=== PATIENT | female | born 1950 | race Caucasian/White ===

== ENCOUNTER 2018-03-25 15:37 | Inpatient (IN) | payer OTHER ==
[2018-03-25 15:52] VITALS: BMI 25.6
[2018-03-25] MEDS ORDERED: METOCLOPRAMIDE HCL INJECTION 10 MG/2 ML VIAL IVPUSH ONE (16:27)
[2018-03-25] MEDS ORDERED: SODIUM CHLORIDE 0.9% 500 ML INFUS.BAG IV ONE ×2 (16:28→17:22)
[2018-03-25 17:00] LABS: BASO % 1.1 % (0-2.0); EOS % 13.5 % (0-4.5); HEMATOCRIT 36.5 % (32.4-45.2); HEMOGLOBIN 12.4 GM/dL (10.7-15.3); LYMPH % 14.1 % (8-40); MCHC 34.1 g/dl (32.0-36.0); NEUT % 65.3 % (42.8-82.8); PLATELET COUNT 171 K/MM3 (134-434); RBC 4.29 M/mm3 (3.60-5.2); RDW 13.2 % (11.6-15.6); WHITE BLOOD COUNT 8.2 K/mm3 (4.0-10.0)
--- NOTE | 2018-03-25 17:05 | PDOC ---
Attending Attestation - Resident Resident Name: Joby Robles - ED Attending Attestation I have performed the following: I have examined & evaluated the patient, The case was reviewed & discussed with the resident, I agree w/resident's findings & plan, Exceptions are as noted - HPI HPI: 67 yo F presenting with AGUIRRE and syncope. +Bifrontal headache for past 2 weeks, no associated photophobia/phonophobia. Had brief LOC on way home from PMD office today. - Physicial Exam PE: GENERAL: Awake, alert, and fully oriented, in no acute distress HEAD: No signs of trauma EYES: PERRLA, EOMI, sclera anicteric, conjunctiva clear ENT: Auricles normal inspection, hearing grossly normal, nares patent, oropharynx clear without exudates. Moist mucosa NECK: Normal ROM, supple, no lymphadenopathy, JVD, or masses LUNGS: Breath sounds equal, clear to auscultation bilaterally. No wheezes, and no crackles HEART: Bradycardic with regular rhythm, normal S1 and S2, no murmurs, rubs or gallops ABDOMEN: Soft, nontender, normoactive bowel sounds. No guarding, no rebound. No masses EXTREMITIES: Normal range of motion, no edema. No clubbing or cyanosis. No cords, erythema, or tenderness NEUROLOGICAL: Cranial nerves II through XII grossly intact. Normal speech, normal gait. Motor and sensation intact. SKIN: Warm, Dry, normal turgor, no rashes or lesions noted. - Medical Decision Making Neurologically intact, no signs of CVA. On account of the CHRISS and bradycardia ( new onset), will admit to tele.
[2018-03-25 17:23] LABS: ALBUMIN 3.9 g/dl (3.4-5.0); ANION GAP 12 MMOL/L (8-16); BILIRUBIN,TOTAL 0.3 mg/dL (0.2-1.0); BLOOD UREA NITROGEN 27 mg/dL (7-18); CALCIUM 9.1 mg/dL (8.5-10.1); CHLORIDE 97 mmol/L (98-107); CO2 24 mmol/L (21-32); CREATININE 1.1 mg/dL (0.55-1.02); GLUCOSE,RANDOM 100 mg/dL (74-106); POTASSIUM 3.4 mmol/L (3.5-5.1); SGOT/AST 17 U/L (15-37); SGPT/ALT 19 U/L (12-78); SODIUM 133 mmol/L (136-145); TOT PROT 7.6 g/dl (6.4-8.2)
[2018-03-25 17:31] LABS: ALK PHOS 98 U/L (45-117)
[2018-03-25] MEDS ORDERED: IBUPROFEN 600 MG TABLET (FP) PO ONE ×2 (17:31→17:32)
--- NOTE | 2018-03-25 17:49 | PDOC ---
History of Present Illness - General Chief Complaint: Pain, Acute Stated Complaint: DIZZINESS Time Seen by Provider: 03/25/18 15:51 History Source: Patient, Family Exam Limitations: No Limitations - History of Present Illness Initial Comments: 67 y/o female presenting to [facility] ER via ambulance complaining of headache and syncope. Pt reports passing out on her way home from her PCPs office this afternoon. Unable to estimate duration of episode. Denies loss of urine or stool. No postictal period. drove the pt home then called for an ambulance. Pt denies h/o similar. Pt has been experiencing a bilateral frontal headache for the past two weeks. States it feels like a headache thats about to get bad. Denies visual or auditory changes. Denies nausea/vomiting, or other systemic symptoms. No fevers , chills, diaphoresis, rhinorrhea, cough/sneeze, sinus pressure, Medical Hx: Hypertension Hyperlipidemia Arthritis Surgical Hx: - Past History - Past Medical History Allergies/Adverse Reactions: Allergies Allergy/AdvReac Type Severity Reaction Status Date / Time No Known Allergies Allergy Verified 03/25/18 15:46 Home Medications: Ambulatory Orders Chlorthalidone 25 mg PO DAILY 03/25/18 Losartan Potassium 100 mg PO DAILY 03/25/18 Montelukast Sodium [Singulair] 10 mg PO HS 03/25/18 Quetiapine Fumarate [Seroquel] 100 tab PO HS 03/25/18 Simvastatin 20 mg PO HS 03/25/18 COPD: No HTN: Yes Hypercholesterolemia: Yes - Immunization History Immunization Up to Date: Yes - Suicide/Smoking/Psychosocial Hx Smoking History: Unknown if ever smoked Hx Alcohol Use: No Drug/Substance Use Hx: No Substance Use Type: None Review of Systems - Review of Systems Able to Perform ROS?: Yes Is the patient limited Jordanian proficient: No Constitutional: No: Chills, Diaphoresis, Fever HEENTM: No: Recent change in vision, Nose Congestion, Hearing Loss, Throat Pain , Difficulty Swallowing Respiratory: No: Cough, Shortness of Breath Cardiac (ROS): Yes: Syncope. No: Chest Pain, Lightheadedness, Palpitations ABD/GI: Yes: Constipated (Chronic and unchanged). No: Diarrhea, Difficulty Swallowing, Nausea, Rectal Bleeding, Vomiting, Indigestion, Abdominal cramping : No: Burning, Dysuria, Discharge, Frequency, Flank Pain, Hematuria Musculoskeletal: No: Back Pain Integumentary: No: Bruising, Rash Neurological: Yes: See HPI, Headache. No: Numbness, Paresthesia, Weakness Hematologic/Lymphatic: No: Easy Bleeding, Easy Bruising *Physical Exam - Vital Signs Last Vital Signs Temp Pulse Resp BP Pulse Ox 97.6 F 53 L 16 146/82 100 03/25/18 16:16 03/25/18 18:36 03/25/18 18:36 03/25/18 18:36 03/25/18 18:36 - Physical Exam Comments: Constitutional: Well-developed, well-nourished female in no acute distress. Found semi-fowlers in hospital bed. Alert and oriented x4. Answered all questions appropriately and completely. Speech was non-labored, non-pressured. Head: Normocephalic. No obvious external signs of trauma. Eyes: PERRL. EOMI. Sclerae white. Conjunctiva moist and not injected. EARS: Hearing grossly intact. No discharge. NOSE: No nasal discharge. THROAT: Oral cavity and pharynx normal. No inflammation, swelling, exudate, or lesions. Teeth and gingiva in good general condition. Neck: Supple, trachea is midline. No thyromegaly. HEENT: Normocephalic. No obvious external signs of trauma. Hearing grossly normal. No nasal discharge. Neck is supple, trachea is midline. No JVD. Cardiovascular: Bradycardic rate and regular rhythm. No murmur, rubs, clicks, or gallops. Peripheral pulses: Radial pulses full. Respiratory: Breathing unlabored. Equal chest rise and fall. Clear to auscultation bilaterally. No stridor, no wheezing, no rhonchi. Gastrointestinal: abdomen is soft, non-tender, non-distended. Neuro: Alert and oriented. Moving all four extremities spontaneously. No focal deficits. Intact sensation to all four extremities. Upper and lower extremity: Proximal and distal strength 5/5, juvenile court judge strength 5/5 - equal and symmetric. Plantar flexion and dorsiflexion 5/5. Skin: Warm, dry, and intact. No bruising, rashes, or other lesions. No palpable nodules. Psych: Affect: appropriate. Mood: normal ED Treatment Course - LABORATORY CBC & Chemistry Diagram: 03/25/18 16:47 03/25/18 16:47 - ADDITIONAL ORDERS Additional order review: Laboratory Results 03/25/18 03/25/18 03/25/18 18:27 18:27 16:47 Sodium 133 L Potassium 3.4 L Chloride 97 L Carbon Dioxide 24 Anion Gap 12 BUN 27 H Creatinine 1.1 H Creat Clearance w eGFR 49.39 Random Glucose 100 Calcium 9.1 Total Bilirubin 0.3 AST 17 ALT 19 Alkaline Phosphatase 98 Troponin I < 0.02 Total Protein 7.6 Albumin 3.9 TSH 2.42 Urine Color Ltyellow Urine Appearance Slcloudy Urine pH 6.0 Ur Specific [place] 1.010 Urine Protein 12 H Negative Urine Glucose (UA) Negative Urine Ketones Negative Urine Blood Negative Urine Nitrite Negative Urine Bilirubin Negative Urine Urobilinogen Negative Ur Leukocyte Esterase 3+ H Urine WBC (Auto) 15 Urine RBC (Auto) 1 Ur Epithelial Cells Moderate Urine Mucus Rare Ur Random Sodium 55 Urine Creatinine 67.2 03/25/18 16:47 RBC 4.29 MCV 85.0 MCHC 34.1 RDW 13.2 MPV 10.0 Neutrophils % 65.3 Lymphocytes % 14.1 Monocytes % 6.0 Eosinophils % 13.5 H Basophils % 1.1 - RADIOLOGY Radiology Studies Ordered: Category Date Time Status CHEST X-RAY PORTABLE* [RAD] Stat Radiology 03/25/18 16:26 Taken - Medications Given in the ED: ED Medications Discontinued Medications Generic Name Dose Route Start Last Admin Trade Name Freq PRN Reason Stop Dose Admin Diphenhydramine HCl 12.5 mg 03/25/18 16:27 03/25/18 17:37 Benadryl Injection - IVPUSH 03/25/18 16:28 Not Given ONCE ONE Ibuprofen 600 mg 03/25/18 17:31 03/25/18 17:35 Motrin - PO 03/25/18 17:32 600 mg ONCE ONE Administration Metoclopramide HCl 10 mg 03/25/18 16:27 03/25/18 17:37 Reglan Injection - IVPUSH 03/25/18 16:28 Not Given ONCE ONE Sodium Chloride 500 ml 03/25/18 16:28 03/25/18 16:54 Normal Saline - IV 03/25/18 16:29 500 ml ONCE ONE Administration Sodium Chloride 500 ml 03/25/18 17:22 03/25/18 17:35 Normal Saline - IV 03/25/18 17:23 500 ml ONCE ONE Administration Medical Decision Making - Medical Decision Making *Reviewed nursing notes and prior visit documentation. 67 y/o female complaining of syncopal episode with acute on chronic 2 week headache. No h/o similar. Afebrile. Vitals remarkable for bradycardia and mild hypertension. Pt is not on a beta-marilia. Benign physical exam. Differential includes ACS, arrhythmia, symptomatic bradycardia, anemia, hypothyroidism, and TIA (low suspicion). Will obtain CBC, CMP, TSH, Troponin EKG, and CXR. Ordered motrin for headache. EKG: Sinus bradycardia with a ventricular rate of 43 bpm. Possible left axis deviation. Normal intervals. No ST segment elevation or depression. No hyperacute T waves. T wave inversions in V2, V3, V4, V5, V6. No pathologic Q waves. CXR: Per my wet read: No acute cardiopulmonary process. Trachea midline. Normal cardiac silhouet. No blunting of costophrenic angles. No infiltrates. CBC unremarkable for anemia or leukocytosis. CMP unremarkable for electrolyte derangement. LFTs not elevated. Azotemia, suspect CHRISS. Will order UA and urine electrolytes. Ordered NS maintenance at 100mL/hr. Troponin not elevated. TSH normal. Discussed imaging and laboratory results with pt. Answered all questions. Pt expressed verbal understanding and agreement with plan to admit to the hospital. Pt admitted to Dr. Leon service on inpatient telemetry for CHRISS and bradycardia. Consult placed for cardiology Dr. Tripathi in [facility]. UA and urine electrolytes pending. *DC/Admit/Observation/Transfer Diagnosis at time of Disposition: Bradycardia, CHRISS (acute kidney injury) Syncope Qualifiers: Syncope type: unspecified Qualified Code(s): R55 - Syncope and collapse - Discharge Dispostion Condition at time of disposition: Fair Decision to Admit order: Yes Decision to Admit order Date/Time: Decision to Admit Order Category Date Time Status Decision to Admit to Hospital Routine Admission 03/25/18 18:20 Active - Referrals - Patient Instructions - Post Discharge Activity
[2018-03-25 18:36] LABS: URINE APPEARANCE SLCLOUDY; URINE BILIRUBIN NEGATIVE (<2.0 mg/dL); URINE COLOR LTYELLOW; URINE GLUCOSE (UA) NEGATIVE (NEGATIVE); URINE KETONE NEGATIVE (NEGATIVE); URINE NITRITE NEGATIVE (NEGATIVE); URINE PROTEIN NEGATIVE (NEGATIVE); URINE UROBILINOGEN NEGATIVE mg/dL (0.2-1.0)
[2018-03-25 18:39] LABS: URINE LEUK ESTERASE 3+ (NEGATIVE)
[2018-03-25 18:43] LABS: EPI CELLS MODERATE /HPF (FEW); URINE MUCUS RARE
[2018-03-25] MEDS: SODIUM CHLORIDE 1,000 ML IV SCH (18:54)
--- NOTE | 2018-03-25 19:22 | HP ---
Admitting History and Physical - Primary Care Physician PCP: Alex Clarke - Admission Chief Complaint: syncope History of Present Illness: 67 y/o female presenting to [facility] ER via ambulance complaining of headache and syncope. Pt reports passing out on her way home from her PCPs office this afternoon. Unable to estimate duration of episode. Denies loss of urine or stool. No postictal period. drove the pt home then called for an ambulance. Pt denies h/o similar. Pt has been experiencing a bilateral frontal headache for the past two weeks. States it feels like a headache thats about to get bad. Denies visual or auditory changes. Denies nausea/vomiting, or other systemic symptoms. No fevers , chills, diaphoresis, rhinorrhea, cough/sneeze, sinus pressure, - Smoking History Smoking history: Unknown if ever smoked - Alcohol/Substance Use Hx Alcohol Use: No Home Medications - Allergies Allergies/Adverse Reactions: Allergies Allergy/AdvReac Type Severity Reaction Status Date / Time No Known Allergies Allergy Verified 03/25/18 15:46 - Home Medications Home Medications: Ambulatory Orders Chlorthalidone 25 mg PO DAILY 03/25/18 Losartan Potassium 100 mg PO DAILY 03/25/18 Montelukast Sodium [Singulair] 10 mg PO HS 03/25/18 Quetiapine Fumarate [Seroquel] 100 tab PO HS 03/25/18 Simvastatin 20 mg PO HS 03/25/18 Physical Examination Vital Signs: Vital Signs Temperature 97.6 F 03/25/18 16:16 Pulse Rate 53 L 03/25/18 18:36 Respiratory Rate 16 03/25/18 18:36 Blood Pressure 146/82 03/25/18 18:36 O2 Sat by Pulse Oximetry (%) 100 03/25/18 18:36 Constitutional: Yes: No Distress HENT: Yes: Atraumatic Neck: Yes: Supple Cardiovascular: Yes: Regular Rate and Rhythm Respiratory: Yes: CTA Bilaterally Gastrointestinal: Yes: Normal Bowel Sounds Extremities: Yes: WNL Neurological: Yes: Alert, Oriented Labs: CBC, BMP 03/25/18 16:47 03/25/18 16:47 Imaging - Results Cat Scan: Report Reviewed Ultrasound: Report Reviewed Problem List - Problems (1) CHRISS (acute kidney injury) Assessment/Plan: iv hydration Code(s): N17.9 - ACUTE KIDNEY FAILURE, UNSPECIFIED (2) Bradycardia Assessment/Plan: tele monitoring cardiology consult fu cardiac enzymes Code(s): R00.1 - BRADYCARDIA, UNSPECIFIED (3) Syncope Code(s): R55 - SYNCOPE AND COLLAPSE Qualifiers: Syncope type: unspecified Qualified Code(s): R55 - Syncope and collapse Assessment/Plan Laboratory Results - last 24 hr 03/25/18 03/25/18 03/25/18 16:47 16:47 18:27 WBC 8.2 RBC 4.29 Hgb 12.4 Hct 36.5 MCV 85.0 MCH 29.0 MCHC 34.1 RDW 13.2 Plt Count 171 MPV 10.0 Absolute Neuts (auto) 5.4 Neutrophils % 65.3 Lymphocytes % 14.1 Monocytes % 6.0 Eosinophils % 13.5 H Basophils % 1.1 Nucleated RBC % 0 Sodium 133 L Potassium 3.4 L Chloride 97 L Carbon Dioxide 24 Anion Gap 12 BUN 27 H Creatinine 1.1 H Creat Clearance w eGFR 49.39 Random Glucose 100 Calcium 9.1 Total Bilirubin 0.3 AST 17 ALT 19 Alkaline Phosphatase 98 Troponin I < 0.02 Total Protein 7.6 Albumin 3.9 TSH 2.42 Urine Color Ltyellow Urine Appearance Slcloudy Urine pH 6.0 Ur Specific [place] 1.010 Urine Protein Negative Urine Glucose (UA) Negative Urine Ketones Negative Urine Blood Negative Urine Nitrite Negative Urine Bilirubin Negative Urine Urobilinogen Negative Ur Leukocyte Esterase 3+ H Urine WBC (Auto) 15 Urine RBC (Auto) 1 Ur Epithelial Cells Moderate Urine Mucus Rare Active Medications Generic Name Dose Route Start Last Admin Trade Name Freq PRN Reason Stop Dose Admin Amlodipine Besylate 5 mg 03/27/18 12:45 03/27/18 13:28 Norvasc - PO 5 mg DAILY WOO Administration Atorvastatin Calcium 10 mg 03/25/18 22:00 03/26/18 21:18 Lipitor - PO 10 mg HS WOO Administration Montelukast Sodium 10 mg 03/25/18 22:00 03/26/18 21:18 Singulair - PO 10 mg HS WOO Administration Quetiapine Fumarate 100 mg 03/26/18 22:00 03/26/18 21:23 Seroquel - PO 100 mg HS WOO Administration
[2018-03-25 19:34] LABS: URINE CREATININE 67.2 mg/dL (20-320)
[2018-03-25] MEDS ORDERED: QUEtiapine FUMARATE 100 MG TABLET (FP) PO SCH (22:00)
[2018-03-25] MEDS: MONTELUKAST NA 10 MG TABLET PO SCH (22:30)
[2018-03-25] MEDS: ATORVASTATIN CA 10 MG TABLET (FP) PO SCH (22:30)
[2018-03-26 07:35] LABS: BASO % 0.9 % (0-2.0); EOS % 18.9 % (0-4.5); HEMATOCRIT 36.8 % (32.4-45.2); LYMPH % 26.6 % (8-40); MCH 27.9 pg (25.7-33.7); MCHC 32.6 g/dl (32.0-36.0); MEAN CELL VOLUME 85.5 fl (80-96); MEAN PLT VOLUME 10.5 fl (7.5-11.1); MONO % 5.9 % (3.8-10.2); NEUT % 47.7 % (42.8-82.8); PLATELET COUNT 159 K/MM3 (134-434); RBC 4.31 M/mm3 (3.60-5.2); RDW 13.2 % (11.6-15.6); WHITE BLOOD COUNT 8.2 K/mm3 (4.0-10.0)
[2018-03-26 07:53] LABS: ALBUMIN 3.5 g/dl (3.4-5.0); ALK PHOS 91 U/L (45-117); ANION GAP 7 MMOL/L (8-16); BILIRUBIN,TOTAL 0.3 mg/dL (0.2-1.0); BLOOD UREA NITROGEN 26 mg/dL (7-18); CALCIUM 8.8 mg/dL (8.5-10.1); CHLORIDE 101 mmol/L (98-107); CO2 26 mmol/L (21-32); GLUCOSE,RANDOM 82 mg/dL (74-106); POTASSIUM 3.7 mmol/L (3.5-5.1); SGOT/AST 17 U/L (15-37); SGPT/ALT 17 U/L (12-78); SODIUM 134 mmol/L (136-145)
--- NOTE | 2018-03-26 09:13 | CON.CARD ---
Consult Consult Specialty:: Cardiology Referred by:: ER/Dr. Clarke Reason for Consultation:: Syncope - History of Present Illness Chief Complaint: Syncope History of Present Illness: 67 year old woman with pmh HTN, HLD, arthritis, insomnia, admitted with severe headache for 2 weeks and an episode of syncope. Pt seen and examined in the ER this am in [place]. As per report pt was in the car with her on the way home from a visit to her PMD's office when she lost consciousness. Her drove her home then called EMS who brought her to the ER. Pt states that she felt headache and lightheaded prior to losing consciousness. As per report she was unconscious for a few minutes. She denies having had any chest pain, sob, palpitations. no prior syncope or near syncope. no pnd, orthopnea or LE edema. As per pt her HR normally is on the low side 50s-60s. - History Source History Provided By: Patient, Medical Record Limitations to Obtaining History: No Limitations - Past Medical History TOE FORMER: Yes: Syncope Cardio/Vascular: Yes: HTN, Hyperlipdemia - Alcohol/Substance Use Hx Alcohol Use: No - Smoking History Smoking history: Unknown if ever smoked - Social History Usual Living Arrangement: With Spouse Place of : [facility] History of Recent Travel: No Home Medications - Allergies Allergies/Adverse Reactions: Allergies Allergy/AdvReac Type Severity Reaction Status Date / Time No Known Allergies Allergy Verified 03/25/18 15:46 - Home Medications Home Medications: Ambulatory Orders Chlorthalidone 25 mg PO DAILY 03/25/18 Losartan Potassium 100 mg PO DAILY 03/25/18 Montelukast Sodium [Singulair] 10 mg PO HS 03/25/18 Quetiapine Fumarate [Seroquel] 100 tab PO HS 03/25/18 Simvastatin 20 mg PO HS 03/25/18 Family Disease History - Family Disease History Family History: Denies Review of Systems - Review of Systems Constitutional: denies: No Symptoms, Chills, Diaphoresis, Fever, Lethargy, Loss of Appetite, Malaise, Night Sweats, Unintentional Wgt. Loss, Weakness, Other Eyes: denies: No Symptoms, Blind Spots, Blurred Vision, Double Vision, Eye Pain , Floaters, Photophobia, Recent Change in Vision, Other HENT: denies: No Symptoms, Difficult Swallowing, Ear Discharge, Ear Pain, Epistaxis, Gingival Bleeding, Hearing Loss, Mouth Swelling, Nasal Congestion, Ocular Prosthesis, Throat Pain, Toothache, Ringing in Ears, Other Neck: denies: No Symptoms, Decreased ROM, Lumps, Pain on Movement, Stiffness, Swollen Glands, Tenderness, Other Cardiovascular: denies: No Symptoms, Chest Pain, Edema, Palpitations, Shortness of Breath, Other Respiratory: denies: No Symptoms, Cough, Exercise Intolerance, Hemoptysis, Orthopnea, PND, Snoring, SOB, SOB on Exertion, Wheezing, Other Gastrointestinal: denies: No Symptoms, Abdominal Pain, Bloating, Constipation, Diarrhea, Dysphagia, Indigestion, Melena, Nausea, Rectal Bleeding, Vomiting, Vomiting Blood, Other Genitourinary: denies: No Symptoms, Burning, Discharge, Dysuria, Flank Pain, Frequency, Hematuria, Incontinence, Lesions, Menses, Pain, Testicular Mass, Testicular Pain, Testicular Swelling, Urgency, Vaginal Bleeding, Other Breasts: denies: No Symptoms Reported, See HPI, Breast Implants, Discharge from Nipple, Lumps, Pain, Skin Changes, Other Musculoskeletal: denies: No Symptoms, Back Pain, Crepitus, Decreased ROM, Extremity Pain, Joint Pain, Joint Swelling, Muscle Pain, Muscle Cramps, Muscle Weakness, Other Integumentary: denies: No Symptoms, Blister, Bruising, Change in Color, Eczema, Erythema, Incision, Lesions, Lump, Pallor, Pruritis, Rash, Wound, Other Neurological: reports: Dizziness, Headache, Syncope. denies: No Symptoms, Change in LOC, Change in Speech, Confusion, Incoordination, Numbness, Parasthesia, Pre-Existing Deficit, Seizure, Tremors, Unsteady Gait, Weakness, Other Endocrine: denies: No Symptoms, Excessive Sweating, Flushing, Increased Hunger, Increased Thirst, Intolerance to Cold, Intolerance to Heat, Unexplained Weight Gain, Unexplained Weight Loss, Other Hematology/Lymphatic: denies: No Symptoms, Easily Bruised, Excessive Bleeding, Swollen Glands, Other Psychiatric: denies: No Symptoms, Altered Sleep Pattern, Anxiety, Depression, Hallucinations, Panic, Paranoia, Suicidal, Other - Risk Factors Known Risk Factors: Yes: Hypercholesterolemia, Hypertension Vital Signs: Vital Signs Temperature 98.0 F 03/26/18 06:39 Pulse Rate 42 L 03/26/18 08:34 Respiratory Rate 18 03/26/18 08:34 Blood Pressure 188/85 03/26/18 08:34 O2 Sat by Pulse Oximetry (%) 99 03/26/18 08:34 Constitutional: Yes: Well Nourished, No Distress, Calm Eyes: Yes: WNL, Conjunctiva Clear, EOM Intact HENT: Yes: WNL, Atraumatic, Normocephalic Neck: Yes: WNL, Supple, Trachea Midline Respiratory: Yes: WNL, Regular, CTA Bilaterally. No: Rales, Rhonchi, Wheezes Gastrointestinal: Yes: WNL, Normal Bowel Sounds, Soft. No: Distention, Tenderness Renal/: Yes: WNL Cardiovascular: Yes: Bradycardia. No: Regular Rate and Rhythm, Tachycardia, Pulse Irregular, Gallop, Rub, Varicosities JVD: No Carotid Bruit: No PMI: Non-Displaced Heart Sounds: Yes: S1, S2. No: Split S2, S3, S4, Clicks, Gallop, Rub, Bruit Murmur: No: Systolic Murmur, Diastolic Murmur Musculoskeletal: Yes: WNL Extremities: Yes: WNL Edema: No Peripheral Pulses WNL: Yes Peripheral Pulses: 2+ Left Doralis Pedis, 2+ Right Dorsalis Pedis Neurological: Yes: Alert, Oriented Psychiatric: Yes: Alert, Oriented - Other Data Labs, Other Data: CBC, BMP 03/26/18 07:08 03/26/18 07:08 Troponin, BNP 03/25/18 16:47 Troponin I < 0.02 Troponin, BNP 03/25/18 16:47 Troponin I < 0.02 ekg-sinus bradycardia 43bpm, diffuse T wave inversions V2-V6, I, aVL Echo: Pending, Image Reviewed Imaging - Results Chest X-ray: Report Reviewed, Image Reviewed EKG: Report Reviewed, Image Reviewed Other: Report Reviewed, Image Reviewed (tele-sinus bradycardia) Assessment/Plan 67 year old woman with pmh HTN, HLD, arthritis, insomnia, admitted with severe headache for 2 weeks and an episode of syncope. As per report pt was in the car with her on the way home from a visit to her PMD's office when she lost consciousness. Her drove her home then called EMS who brought her to the ER. Pt states that she felt headache and lightheaded prior to losing consciousness. As per report she was unconscious for a few minutes. She denies having had any chest pain, sob, palpitations. no prior syncope or near syncope. no pnd, orthopnea or LE edema. As per pt her HR normally is on the low side 50s- 60s. Syncope-uncertain etiology -unlikely that sinus bradycardia led to this episode of syncope. -in setting of severe headache for 2 weeks would evaluate for neurologic source -will order head ct -would consider neurology consult -evidence of intravascular depletion based on labs, received IVF -hold chlorthalidone for now. -check orthostatic BP -echo being done at bedside, images briefly reviewed, normal LV/RV size and function, no sig valvular abnl, no pericardial effusion, report pending -unlikely ACS, cardiac enzymes were wnl x 1, would repeat a 2nd set -monitor tele 24 hours for evidence of arrhythmia or high degree heart block -once able to would have pt ambulate in hallway and evaluate HR with ambulation Abnormal EKG-sinus bradycardia and diffuse T wave inversions -unlikely ACS -as per report pt has chronic mild sinus cory -avoid AV francis blockers -ambulation when possible and evaluate HR -at some point an ETT might be helpful to evaluate for chronotropic competency, would wait until other sources of syncope evaluated -echo as above -monitor tele
[2018-03-26] MEDS ORDERED: PNEUMOC 13-VAL CONJ-DIP CRM/PF 0.5 ML DISP.SYRIN IM ONE (10:45)
--- NOTE | 2018-03-26 17:07 | ECHO ---
Name: COLBY PALAFOX Exam:Adult Echocardiogram Study Date: 03/26/2018 09:01 AM Age: 67 yrs Reason For Study: LVEF Height: 62 in Weight: 140 lb BSA: 1.6 m2 MMode/2D Measurements & Calculations IVSd: 0.74 cm Ao root diam: 2.4 cm LVIDd: 5.0 cm LA dimension: 3.5 cm LVIDs: 3.3 cm LVPWd: 0.73 cm EDV(Teich): 116.6 ml ESV(Teich): 44.1 ml Doppler Measurements & Calculations MV E max wendy: 60.5 cm/sec Ao V2 max: 121.6 cm/sec MV A max wendy: 22.8 cm/sec Ao max P.9 mmHg MV E/A: 2.6 MV dec time: 0.29 sec LV V1 max P.8 mmHg MR max ewndy: 291.3 cm/sec LV V1 max: 97.7 cm/sec MR max P.3 mmHg Procedure The study was technically difficult with many images being suboptimal in quality. Left Ventricle The left ventricular size, thickness and function are normal. Ejection Fraction = 60-65%. The transmi tral spectral Doppler flow pattern is suggestive of impaired LV relaxation. Right Ventricle The right ventricle is normal in size and function. Atria Normal left and right atrial size and function. Mitral Valve There is mild mitral annular calcification. There is mild mitral regurgitation. Tricuspid Valve The tricuspid valve is not well visualized, but is grossly normal. There is trace tricuspid regurgita tion. There was insufficient TR detected to calculate RV systolic pressure. Aortic Valve There is mild aortic sclerosis.;. Pulmonic Valve The pulmonic valve is not well visualized. Great Vessels The aortic root is normal size. Pericardium/Pleura There is no pericardial effusion. Interpretation Summary The study was technically difficult with many images being suboptimal in quality. The left ventricular size, thickness and function are normal. Ejection Fraction = 60-65%. The transmitral spectral Doppler flow pattern is suggestive of impaired LV relaxation. The right ventricle is normal in size and function. Normal left and right atrial size and function. There is mild aortic sclerosis.; There is mild mitral annular calcification. There is mild mitral regurgitation. MD Tati Fagan 03/26/2018 05:06 PM
--- NOTE | 2018-03-26 17:16 | EKG ---
Test Reason : Blood Pressure : / mmHG Vent. Rate : 043 BPM Atrial Rate : 043 BPM P-R Int : 186 ms QRS Dur : 084 ms QT Int : 482 ms P-R-T Axes : 049 -04 132 degrees QTc Int : 407 ms MARKED SINUS BRADYCARDIA T WAVE ABNORMALITY, CONSIDER LATERAL ISCHEMIA ABNORMAL ECG Confirmed by MD ANITRA, ASAD ([id number]) on 03/26/2018 5:16:47 PM Referred By: Confirmed By:ASAD AYOUB MD
--- NOTE | 2018-03-26 18:22 | PN ---
Progress Note, Physician - Current Medication List Current Medications: Active Medications Atorvastatin Calcium (Lipitor -) 10 mg PO [facility] Last Admin: 03/25/18 22:30 Dose: 10 mg Sodium Chloride (Normal Saline -) 1,000 mls @ 100 mls/hr IV ASDIR [facility] Last Admin: 03/25/18 18:54 Dose: 100 mls/hr Montelukast Sodium (Singulair -) 10 mg PO [facility] Last Admin: 03/25/18 22:30 Dose: 10 mg Quetiapine Fumarate (Seroquel -) 100 mg PO [facility] Last Admin: 03/25/18 22:30 Dose: 100 mg - Objective Vital Signs: Vital Signs Temperature 97.7 F 03/26/18 13:44 Pulse Rate 55 L 03/26/18 13:44 Respiratory Rate 18 03/26/18 13:44 Blood Pressure 142/67 03/26/18 13:44 O2 Sat by Pulse Oximetry (%) 97 03/26/18 14:00 Constitutional: Yes: No Distress HENT: Yes: Atraumatic Neck: Yes: Supple Cardiovascular: Yes: Regular Rate and Rhythm Respiratory: Yes: CTA Bilaterally Gastrointestinal: Yes: Normal Bowel Sounds Extremities: Yes: WNL Neurological: Yes: Alert, Oriented Labs: CBC, BMP 03/26/18 07:08 03/26/18 07:08 Problem List - Problems (1) CHRISS (acute kidney injury) Assessment/Plan: cr wnl Code(s): N17.9 - ACUTE KIDNEY FAILURE, UNSPECIFIED (2) Bradycardia Assessment/Plan: tele monitoring cardiology consult fu cardiac enzymes...negative Code(s): R00.1 - BRADYCARDIA, UNSPECIFIED (3) Syncope Assessment/Plan: carotid doppler done Code(s): R55 - SYNCOPE AND COLLAPSE Qualifiers: Syncope type: unspecified Qualified Code(s): R55 - Syncope and collapse
[2018-03-26] MEDS: SODIUM CHLORIDE 1,000 ML IV SCH (19:15)
[2018-03-26] MEDS ORDERED: QUEtiapine FUMARATE 50 MG TABLET ONE (21:12)
[2018-03-26] MEDS: MONTELUKAST NA 10 MG TABLET PO SCH (21:18)
[2018-03-26] MEDS: ATORVASTATIN CA 10 MG TABLET (FP) PO SCH (21:18)
[2018-03-26] MEDS: QUEtiapine FUMARATE 50 MG TABLET PO SCH (21:23)
--- NOTE | 2018-03-27 10:24 | PN ---
Progress Note, Physician History of Present Illness: 67 year old woman with pmh HTN, HLD, arthritis, insomnia, admitted with severe headache for 2 weeks and an episode of syncope. Pt seen and examined in the ER this am in [facility]. As per report pt was in the car with her on the way home from a visit to her PMD's office when she lost consciousness. Her drove her home then called EMS who brought her to the ER. Pt states that she felt headache and lightheaded prior to losing consciousness. As per report she was unconscious for a few minutes. She denies having had any chest pain, sob, palpitations. no prior syncope or near syncope. no pnd, orthopnea or LE edema. As per pt her HR normally is on the low side 50s-60s. - Current Medication List Current Medications: Active Medications Atorvastatin Calcium (Lipitor -) 10 mg PO [facility] Last Admin: 03/26/18 21:18 Dose: 10 mg Sodium Chloride (Normal Saline -) 1,000 mls @ 100 mls/hr IV ASDIR [facility] Last Admin: 03/26/18 19:15 Dose: 100 mls/hr Montelukast Sodium (Singulair -) 10 mg PO [facility] Last Admin: 03/26/18 21:18 Dose: 10 mg Quetiapine Fumarate (Seroquel -) 100 mg PO [facility] Last Admin: 03/26/18 21:23 Dose: 100 mg - Objective Vital Signs: Vital Signs Temperature 97.8 F 03/27/18 05:22 Pulse Rate 44 L 03/27/18 05:22 Respiratory Rate 18 03/27/18 05:22 Blood Pressure 134/75 03/27/18 05:22 O2 Sat by Pulse Oximetry (%) 97 03/26/18 14:00 Eyes: Yes: WNL, Conjunctiva Clear, EOM Intact HENT: Yes: WNL, Atraumatic, Normocephalic Neck: Yes: WNL, Supple, Trachea Midline Cardiovascular: Yes: WNL, Regular Rate and Rhythm Respiratory: Yes: WNL, Regular, CTA Bilaterally Gastrointestinal: Yes: WNL, Normal Bowel Sounds Genitourinary: Yes: WNL Musculoskeletal: Yes: WNL Extremities: Yes: WNL Edema: No Integumentary: Yes: WNL Neurological: Yes: WNL, Alert, Oriented ...Motor Strength: WNL Psychiatric: Yes: WNL Labs: CBC, BMP 03/26/18 07:08 03/26/18 07:08 Assessment/Plan Assessment/Plan 67 year old woman with pmh HTN, HLD, arthritis, insomnia, admitted with severe headache for 2 weeks and an episode of syncope. As per report pt was in the car with her on the way home from a visit to her PMD's office when she lost consciousness. Her drove her home then called EMS who brought her to the ER. Pt states that she felt headache and lightheaded prior to losing consciousness. As per report she was unconscious for a few minutes. She denies having had any chest pain, sob, palpitations. no prior syncope or near syncope. no pnd, orthopnea or LE edema. As per pt her HR normally is on the low side 50s- 60s. Syncope-uncertain etiology -unlikely that sinus bradycardia led to this episode of syncope. -in setting of severe headache for 2 weeks would evaluate for neurologic source -will order head ct -would consider neurology consult -evidence of intravascular depletion based on labs, received IVF -hold chlorthalidone for now. -check orthostatic BP -echo nl ef -unlikely ACS, cardiac enzymes were wnl x 1, would repeat a 2nd set -monitor tele 24 hours for evidence of arrhythmia or high degree heart block -once able to would have pt ambulate in hallway and evaluate HR with ambulation Abnormal EKG-sinus bradycardia and diffuse T wave inversions -unlikely ACS -as per report pt has chronic mild sinus cory -avoid AV francis blockers -ambulation when possible and evaluate HR -at some point an ETT might be helpful to evaluate for chronotropic competency, would wait until other sources of syncope evaluated -echo as above -monitor tele HTN - addNorvasc 5 QD
[2018-03-27] MEDS ORDERED: amLODIPine BESYLATE 5 MG TABLET (FP) PO SCH (12:45)
--- NOTE | 2018-03-27 19:14 | PN ---
Progress Note, Physician - Current Medication List Current Medications: Active Medications Amlodipine Besylate (Norvasc -) 5 mg PO DAILY [facility] Last Admin: 03/27/18 13:28 Dose: 5 mg Atorvastatin Calcium (Lipitor -) 10 mg PO [facility] Last Admin: 03/26/18 21:18 Dose: 10 mg Montelukast Sodium (Singulair -) 10 mg PO [facility] Last Admin: 03/26/18 21:18 Dose: 10 mg Quetiapine Fumarate (Seroquel -) 100 mg PO [facility] Last Admin: 03/26/18 21:23 Dose: 100 mg - Objective Vital Signs: Vital Signs Temperature 98.5 F 03/27/18 13:31 Pulse Rate 53 L 03/27/18 13:31 Respiratory Rate 16 03/27/18 14:00 Blood Pressure 191/76 03/27/18 13:31 O2 Sat by Pulse Oximetry (%) 100 03/27/18 14:00 Constitutional: Yes: No Distress HENT: Yes: Atraumatic Neck: Yes: Supple Cardiovascular: Yes: Regular Rate and Rhythm Respiratory: Yes: CTA Bilaterally Gastrointestinal: Yes: Normal Bowel Sounds Extremities: Yes: WNL Edema: No Peripheral Pulses WNL: Yes Neurological: Yes: Alert, Oriented Labs: CBC, BMP 03/26/18 07:08 03/26/18 07:08 Problem List - Problems (1) CHRISS (acute kidney injury) Assessment/Plan: cr wnl Code(s): N17.9 - ACUTE KIDNEY FAILURE, UNSPECIFIED (2) Bradycardia Assessment/Plan: tele monitoring cardiology consult fu cardiac enzymes...negative for stress test Code(s): R00.1 - BRADYCARDIA, UNSPECIFIED (3) Syncope Assessment/Plan: carotid doppler done Code(s): R55 - SYNCOPE AND COLLAPSE Qualifiers: Syncope type: unspecified Qualified Code(s): R55 - Syncope and collapse
[2018-03-27] MEDS: MONTELUKAST NA 10 MG TABLET PO SCH (21:25)
[2018-03-27] MEDS: ATORVASTATIN CA 10 MG TABLET (FP) PO SCH (21:25)
[2018-03-27] MEDS: QUEtiapine FUMARATE 50 MG TABLET PO SCH (21:25)
[2018-03-28 07:00] LABS: CHOLESTEROL 195 mg/dL (50-200); TRIGLYCERIDES 200 mg/dL (35-160)
[2018-03-28 07:03] LABS: HDL CHOLESTEROL 74 mg/dL (40-60)
--- NOTE | 2018-03-28 08:40 | PN ---
Progress Note, Physician Chief Complaint: Pgt A&Ox3; no chest pain or dyapnea History of Present Illness: 67 y/o female presenting to [facility] ER via ambulance complaining of headache and syncope. Pt reports passing out on her way home from her PCPs office this afternoon. Unable to estimate duration of episode. Denies loss of urine or stool. No postictal period. drove the pt home then called for an ambulance. Pt denies h/o similar. Pt has been experiencing a bilateral frontal headache for the past two weeks. States it feels like a headache thats about to get bad. Denies visual or auditory changes. Denies nausea/vomiting, or other systemic symptoms. No fevers , chills, diaphoresis, rhinorrhea, cough/sneeze, sinus pressure, Medical Hx: Hypertension Hyperlipidemia Arthritis - Current Medication List Current Medications: Active Medications Amlodipine Besylate (Norvasc -) 5 mg PO DAILY [facility] Last Admin: 03/27/18 13:28 Dose: 5 mg Atorvastatin Calcium (Lipitor -) 10 mg PO [facility] Last Admin: 03/27/18 21:25 Dose: 10 mg Montelukast Sodium (Singulair -) 10 mg PO [facility] Last Admin: 03/27/18 21:25 Dose: 10 mg Quetiapine Fumarate (Seroquel -) 100 mg PO [facility] Last Admin: 03/27/18 21:25 Dose: 100 mg - Objective Vital Signs: Vital Signs Temperature 97.7 F 03/28/18 05:59 Pulse Rate 47 L 03/28/18 05:59 Respiratory Rate 18 03/28/18 05:59 Blood Pressure 128/68 03/28/18 05:59 O2 Sat by Pulse Oximetry (%) 99 03/27/18 22:00 Constitutional: Yes: Calm Eyes: Yes: WNL HENT: Yes: WNL Neck: Yes: WNL Cardiovascular: Yes: Bradycardia Respiratory: Yes: WNL Gastrointestinal: Yes: WNL ...Rectal Exam: Yes: Deferred Genitourinary: No: Anuria Breast(s): Yes: WNL Musculoskeletal: Yes: WNL Extremities: Yes: Other (left IV forearm site red and tender) Labs: CBC, BMP 03/26/18 07:08 03/26/18 07:08 Problem List - Problems (1) HTN (hypertension) Assessment/Plan: Restart pt's home medications (losartan 100 mg daily; chlorthalidone 25 mg daily ); will give 50 mg losartan today instead of 100 mg, as pt just received a dose of amlodipine 5 mg. ECHO: normal LVEF; normal wall thickness; abnormal diastolic compliance. For stress MIBI today. Code(s): I10 - ESSENTIAL (PRIMARY) HYPERTENSION (2) Bradycardia Code(s): R00.1 - BRADYCARDIA, UNSPECIFIED (3) Syncope Assessment/Plan: CT head: no acute pathology Carotid artery US: little plaque; no stenoses. ECHO: normal LVEF; abnormal diastolic compliance. For stress MIBI today. Follow orthostatic VS; avoid dehydration (f/u BUN/Cr and electrolytes while on chlorthalidone). Code(s): R55 - SYNCOPE AND COLLAPSE Qualifiers: Syncope type: unspecified Qualified Code(s): R55 - Syncope and collapse (4) Hypertriglyceridemia Code(s): E78.1 - PURE HYPERGLYCERIDEMIA
[2018-03-28] MEDS ORDERED: LOSARTAN POTASSIUM 50 MG TABLET (FP) PO ONE (08:45)
[2018-03-28] MEDS ORDERED: CHLORTHALIDONE 25 MG TABLET PO SCH (10:00)
--- NOTE | 2018-03-28 17:30 | DS ---
Physical Examination Vital Signs: Vital Signs Temperature 98.3 F 03/28/18 14:00 Pulse Rate 59 L 03/28/18 14:00 Respiratory Rate 20 03/28/18 14:00 Blood Pressure 119/68 03/28/18 14:00 O2 Sat by Pulse Oximetry (%) 99 03/28/18 09:00 Constitutional: Yes: No Distress HENT: Yes: Atraumatic Neck: Yes: Supple Cardiovascular: Yes: Regular Rate and Rhythm Respiratory: Yes: CTA Bilaterally Gastrointestinal: Yes: Normal Bowel Sounds Extremities: Yes: WNL Edema: No Neurological: Yes: Alert, Oriented Labs: CBC, BMP 03/26/18 07:08 03/26/18 07:08 Discharge Summary Reason For Visit: SYNCOPE,BRADYCARDIA,ACUTE KIDNEY INJURY Current Active Problems CHRISS (acute kidney injury) (Acute) Bradycardia (Acute) HTN (hypertension) (Acute) Hypertriglyceridemia (Acute) Syncope (Acute) Condition: Fair - Instructions Referrals: Gene Sandoval MD [Primary Care Provider] - - Home Medications Comprehensive Discharge Medication List: Ambulatory Orders Chlorthalidone 25 mg PO DAILY 03/25/18 Losartan Potassium 100 mg PO DAILY 03/25/18 Montelukast Sodium [Singulair] 10 mg PO HS 03/25/18 Quetiapine Fumarate [Seroquel] 100 tab PO HS 03/25/18 Simvastatin 20 mg PO HS 03/25/18 Amlodipine Besylate [Norvasc -] 5 mg PO DAILY #30 tablet 03/27/18 ct home cardiology
[2018-03-28 19:54] VITALS: BP 128/66; PULSE 61; TEMP 98
[2018-03-29] MEDS ORDERED: LOSARTAN POTASSIUM 50 MG TABLET (FP) PO SCH (10:00)
== END 2018-03-28 19:15 | disposition home or self-care (01) | DRG 312 ==
LOC: JER 15:37 → INTOOBSV 18:20 → JERBED 18:20 → UNDOADMOB 18:20 → JERBED 19:22 → OBSVTOIN 19:22 → J4W 03-26 13:30
PROVIDERS: ADMIT Internal Medicine; ATTEND Internal Medicine
DX: R55 Syncope and collapse (principal); N17.9 Acute kidney failure, unspecified; I10 Essential (primary) hypertension; M19.90 Unspecified osteoarthritis, unspecified site; R00.1 Bradycardia, unspecified; E78.1 Pure hyperglyceridemia
CPT/HCPCS: 36415; 70450-TC; 71045-TC-FY; 78452-TC; 80053; 80061; 81003; 81015; 82550; 82570; 83721; 84156; 84300; 84443; 84484; 85025; 90670; 93005; 93010; 93017; 93306-TC; 93880-TC; 99285-25; A9502; J7030

== ENCOUNTER 2023-06-15 20:13 | Inpatient (IN) | payer OTHER ==
[2023-06-15 20:20] VITALS: BMI 27.4
[2023-06-15 21:09] LABS: BASO % 0.9 % (0-2.0); HEMATOCRIT 37.3 % (32.4-45.2); HEMOGLOBIN 12.2 GM/dL (10.7-15.3); LYMPH % 30.2 % (8-40); MCH 27.1 pg (25.7-33.7); MCHC 32.6 g/dl (32.0-36.0); MEAN CELL VOLUME 83.1 fl (80-96); MEAN PLT VOLUME 9.9 fl (7.5-11.1); MONO % 7.3 % (3.8-10.2); NEUT % 33.6 % (42.8-82.8); PLATELET COUNT 184 10^3/uL (134-434); RBC 4.49 M/mm3 (3.60-5.2); RDW 14.7 % (11.6-15.6); WHITE BLOOD COUNT 9.4 K/mm3 (4.0-10.0)
[2023-06-15 21:45] LABS: POTASSIUM 3.9 mmol/L (3.5-5.1)
[2023-06-15 21:47] LABS: CALCIUM 9.1 mg/dL (8.5-10.1)
[2023-06-15 21:48] LABS: ALBUMIN 3.6 g/dl (3.4-5.0); BLOOD UREA NITROGEN 25.4 mg/dL (7-18)
[2023-06-15 21:51] LABS: CREATININE 1.3 mg/dL (0.55-1.3)
[2023-06-15 21:52] LABS: BILIRUBIN,TOTAL 0.3 mg/dL (0.2-1)
[2023-06-15 21:53] LABS: TOT PROT 7.8 g/dl (6.4-8.2)
[2023-06-15 21:56] LABS: N-TERMINAL BNP 843.4 pg/ml (5-125)
[2023-06-15 21:59] LABS: ANISOCYTOSIS 2+; MACROCYTOSIS 0; OVALOCYTE 1+
[2023-06-15 22:19] LABS: EPI CELLS 10 /uL (0-25.1); HYALINE CASTS 0 /uL (0-3.1); URINE APPEARANCE TURBID; URINE BACTERIA 68 /uL (0-1359); URINE BILIRUBIN NEGATIVE (NEGATIVE); URINE COLOR YELLOW; URINE GLUCOSE (UA) NEGATIVE (NEGATIVE); URINE KETONE NEGATIVE (NEGATIVE); URINE LEUK ESTERASE TRACE (NEGATIVE); URINE NITRITE NEGATIVE (NEGATIVE); URINE PROTEIN 1+ (NEGATIVE); URINE RBC 5 /uL (0-23.9); URINE UROBILINOGEN 0.2 mg/dL (0.2-1.0); URINE WBC 20 /uL (0-25.8)
[2023-06-16] MEDS ORDERED: hydrALAZINE HCL 10 MG TABLET PO ONE (04:30)
[2023-06-16] MEDS: hydrALAZINE HCL 10 MG TABLET PO SCH ×3 (06:42→21:23)
[2023-06-16 07:39] LABS: HEMATOCRIT 35.9 % (32.4-45.2); HEMOGLOBIN 11.9 GM/dL (10.7-15.3); MCH 27.7 pg (25.7-33.7); MCHC 33.1 g/dl (32.0-36.0); MEAN CELL VOLUME 83.5 fl (80-96); MEAN PLT VOLUME 10.3 fl (7.5-11.1); PLATELET COUNT 163 10^3/uL (134-434); RDW 14.8 % (11.6-15.6); WHITE BLOOD COUNT 10.2 K/mm3 (4.0-10.0)
[2023-06-16 08:04] LABS: POTASSIUM 3.8 mmol/L (3.5-5.1)
[2023-06-16 08:06] LABS: CALCIUM 9.2 mg/dL (8.5-10.1)
[2023-06-16 08:10] LABS: CREATININE 1.3 mg/dL (0.55-1.3)
[2023-06-16] MEDS: ENOXAPARIN NA (PORCINE) 40 MG/0.4 ML DISP.SYRIN SQ SCH (10:56)
[2023-06-16] MEDS: LOSARTAN POTASSIUM 50 MG TABLET PO SCH (10:56)
[2023-06-16] MEDS: CHLORTHALIDONE 25 MG TABLET PO SCH ×2 (10:58→12:05)
[2023-06-16] MEDS: ACETAMINOPHEN 325 MG TABLET (FP) PO PRN (17:10)
[2023-06-16 20:06] VITALS: RESP 18
[2023-06-16] MEDS: ATORVASTATIN CA 10 MG TABLET (FP) PO SCH (21:23)
[2023-06-16] MEDS: MONTELUKAST NA 10 MG TABLET PO SCH (21:23)
[2023-06-16] MEDS ORDERED: QUEtiapine FUMARATE 100 MG TABLET (FP) PO SCH (22:00)
[2023-06-16] MEDS: QUEtiapine FUMARATE 100 MG TABLET (FP) PO SCH (22:34)
[2023-06-17] MEDS: hydrALAZINE HCL 10 MG TABLET PO SCH (05:13)
[2023-06-17] MEDS: LOSARTAN POTASSIUM 50 MG TABLET PO SCH (09:12)
[2023-06-17] MEDS: CHLORTHALIDONE 25 MG TABLET PO SCH ×3 (09:12→09:15)
[2023-06-17] MEDS: ENOXAPARIN NA (PORCINE) 40 MG/0.4 ML DISP.SYRIN SQ SCH (09:12)
[2023-06-17] MEDS: NIFEdipine E.R. 30 MG TABLET PO SCH (11:08)
[2023-06-17] MEDS: hydrALAZINE HCL 25 MG TABLET (FP) PO SCH ×2 (13:07→21:00)
[2023-06-17] MEDS: ACETAMINOPHEN 325 MG TABLET (FP) PO PRN (14:27)
[2023-06-17] MEDS: CEFTRIAXONE 1 GM in DEXTROSE 5%-WATER - 50 ML IVPB SCH (14:28)
[2023-06-17] MEDS: MONTELUKAST NA 10 MG TABLET PO SCH (21:00)
[2023-06-17] MEDS: ATORVASTATIN CA 10 MG TABLET (FP) PO SCH (21:00)
[2023-06-17] MEDS: QUEtiapine FUMARATE 100 MG TABLET (FP) PO SCH (21:01)
[2023-06-18] MEDS: hydrALAZINE HCL 25 MG TABLET (FP) PO SCH ×2 (05:42→14:41)
[2023-06-18] MEDS ORDERED: LEVOTHYROXINE NA 25 MCG TABLET (FP) PO SCH (07:00)
[2023-06-18] MEDS: CEFTRIAXONE 1 GM in DEXTROSE 5%-WATER - 50 ML IVPB SCH (10:16)
[2023-06-18] MEDS: LOSARTAN POTASSIUM 50 MG TABLET PO SCH (10:17)
[2023-06-18] MEDS: ENOXAPARIN NA (PORCINE) 40 MG/0.4 ML DISP.SYRIN SQ SCH (10:17)
[2023-06-18] MEDS: NIFEdipine E.R. 30 MG TABLET PO SCH (10:18)
[2023-06-18] MEDS: CHLORTHALIDONE 25 MG TABLET PO SCH (10:18)
[2023-06-18 14:21] VITALS: BP 127/74; PULSE 70; TEMP 98
== END 2023-06-18 18:36 | disposition home or self-care (01) | DRG 683 ==
LOC: JER 20:13 → JERBED 23:15 → OBSVTOIN 23:42 → J4S 06-16 01:30
PROVIDERS: ADMIT Internal Medicine; ATTEND Internal Medicine
DX: I12.9 Hypertensive chronic kidney disease with stage 1 through stage 4 chronic kidney disease, or unspecified chronic kidney disease (principal); N39.0 Urinary tract infection, site not specified; I16.0 Hypertensive urgency; R00.1 Bradycardia, unspecified; E78.1 Pure hyperglyceridemia; N18.2 Chronic kidney disease, stage 2 (mild); B95.1 Streptococcus, group B, as the cause of diseases classified elsewhere
CPT/HCPCS: 0241U-QW; 36415; 71045-TC-FY; 71275-TC; 76775-TC; 80048; 80053; 81003; 83880; 84443; 84484; 85025; 85027; 85379; 87077; 87086; 93005; 93010; 93306-TC; 99285-25; G0378; Q9967